=== PATIENT | female | born 1995 | race Caucasian/White ===

== ENCOUNTER 2020-01-01 17:23 | Outpatient (CLI) | payer OTHER ==
[2020-01-01] MEDS ORDERED: PRENATAL TABLE1 EAC1 PO (18:30)
== END 2020-01-02 12:57 | disposition home or self-care (01) ==
LOC: OBS/DEL 17:23
PROVIDERS: ATTEND Obstetrics & Gynecology Obstetrics
DX: O42.012 Preterm premature rupture of membranes, onset of labor within 24 hours of rupture, second trimester (principal)

== ENCOUNTER 2020-02-09 05:27 | Inpatient (IN) | payer OTHER ==
[~2020-02-09] VITALS: Ht 142.2 cm; Wt 70.3 kg
[~2020-02-09 05:27] MED LIST: PRENATAL TABLE1 EAC1 PO
== END 2020-02-11 12:07 | disposition home or self-care (01) | DRG 833 ==
LOC: OBS/DEL 05:27 → LDR 12:43 → OBS/DEL 12:43 → OB/GYN 12:43
PROVIDERS: ADMIT Obstetrics & Gynecology Obstetrics; ATTEND Obstetrics & Gynecology Obstetrics
PROC: 4A1HXCZ Monitoring of Products of Conception, Cardiac Rate, External Approach (ICD-10-PCS; principal; 2020-02-09)
DX: O23.32 Infections of other parts of urinary tract in pregnancy, second trimester (principal); O21.8 Other vomiting complicating pregnancy; R10.2 Pelvic and perineal pain; Z3A.27 27 weeks gestation of pregnancy

== ENCOUNTER 2020-04-03 07:18 | Outpatient (CLI) | payer OTHER | END 2020-04-03 14:33 | disposition home or self-care (01) | LOC: OBS/DEL 07:18 | PROVIDERS: ATTEND Obstetrics & Gynecology Obstetrics | DX: O26.843 Uterine size-date discrepancy, third trimester (principal); O36.8130 Decreased fetal movements, third trimester, not applicable or unspecified; O26.853 Spotting complicating pregnancy, third trimester ==

== ENCOUNTER 2020-04-20 03:38 | Inpatient (IN) | payer OTHER ==
[~2020-04-20] VITALS: Ht 142.2 cm; Wt 77.6 kg
== END 2020-04-23 14:31 | disposition home or self-care (01) | DRG 788 ==
LOC: LDR 03:38 → OB/GYN 03:38 → LDR 10:37 → O/R 22:50 → OB/GYN 04-21 00:40
PROVIDERS: ADMIT Obstetrics & Gynecology Obstetrics; ATTEND Obstetrics & Gynecology Obstetrics
PROC: 10907ZC Drainage of Amniotic Fluid, Therapeutic from Products of Conception, Via Natural or Artificial Opening (ICD-10-PCS; 2020-04-20)
PROC: 4A1HXFZ Monitoring of Products of Conception, Cardiac Rhythm, External Approach (ICD-10-PCS; 2020-04-20)
PROC: 3E033VJ Introduction of Other Hormone into Peripheral Vein, Percutaneous Approach (ICD-10-PCS; 2020-04-20)
PROC: BY4FZZZ Ultrasonography of Third Trimester, Single Fetus (ICD-10-PCS; 2020-04-20)
PROC: 10D00Z1 Extraction of Products of Conception, Low, Open Approach (ICD-10-PCS; principal; 2020-04-20 21:00)
DX: O62.0 Primary inadequate contractions (principal); Z3A.37 37 weeks gestation of pregnancy; Z37.0 Single live birth; Z20.828 Contact with and (suspected) exposure to other viral communicable diseases